=== PATIENT | female | born 1980 | race Asian ===

== ENCOUNTER 2020-01-01 09:15 | Outpatient (CLI) | payer BC | END 2020-01-01 20:02 | disposition home or self-care (01) | LOC: RAD 09:15 | DX: J40 Bronchitis, not specified as acute or chronic (principal) ==

== ENCOUNTER 2020-07-14 16:04 | Emergency (ER) | payer BC ==
[~2020-07-14] VITALS: Ht 162.6 cm; Wt 72.6 kg
[2020-07-14 17:05] VITALS: BP 133/68; TEMP 98.9
== END 2020-07-14 17:05 | disposition home or self-care (01) ==
LOC: ED 16:04
DX: F41.8 Other specified anxiety disorders (principal)
CPT/HCPCS: 93005; 99282

== ENCOUNTER 2022-10-02 20:48 | Emergency (ER) | payer BC ==
[~2022-10-02] VITALS: Ht 162.6 cm; Wt 77.1 kg
[2022-10-02 22:11] VITALS: BP 143/74; TEMP 98.2
== END 2022-10-02 22:11 | disposition home or self-care (01) ==
LOC: ED 20:48
DX: S29.011A Strain of muscle and tendon of front wall of thorax, initial encounter (principal); F41.8 Other specified anxiety disorders; X50.1XXA Overexertion from prolonged static or awkward postures, initial encounter; Y92.89 Other specified places as the place of occurrence of the external cause
CPT/HCPCS: 93005; 96372; 99282; J1885

== ENCOUNTER 2023-03-10 18:27 | Emergency (ER) | payer BC ==
[~2023-03-10] VITALS: Ht 162.6 cm; Wt 77.1 kg
[2023-03-10 18:30] VITALS: TEMP 98.4
[2023-03-10 19:09] LABS: PLATELET COUNT 245 K/uL (152-353)
[2023-03-10 19:22] LABS: POTASSIUM 3.7 mmol/L (3.6-5.2)
[2023-03-10 19:33] LABS: PARTIAL THROMBOPLASTIN TIME 22.5 SECONDS (24.5-33.6)
[2023-03-10 19:50] VITALS: BP 142/85
== END 2023-03-10 19:50 | disposition home or self-care (01) ==
LOC: ED 18:27
PROVIDERS: Emergency Medicine
DX: R07.89 Other chest pain (principal); M62.82 Rhabdomyolysis; I10 Essential (primary) hypertension; Z56.3 Stressful work schedule
CPT/HCPCS: 36415; 80053; 82550; 84484; 85027; 85610; 85730; 93005; 99283